=== PATIENT | male | born 1995 | race Caucasian/White ===

== ENCOUNTER → 2020-05-11 08:52 | Outpatient (BNVA) | payer OTHER, SELFPAY | PROVIDERS: Family Provider Nurse Practitioner; PCP Nurse Practitioner; Visit Provider Nurse Practitioner Family | DX: Z20.828 Contact with and (suspected) exposure to other viral communicable diseases (principal) | CPT/HCPCS: 87635 ==

== ENCOUNTER 2020-11-06 09:02 | Emergency (ER) | payer OTHER, SELFPAY ==
[2020-11-06 09:21] VITALS: BP 133/70; PULSE 77; RESP 18; TEMP 36.4; O2SAT 97; BMI 29.9
--- NOTE | 2020-11-06 09:32 | ED_ITS ---
HPI - Animal Bite General: Chief Complaint: Animal Bite Stated Complaint: possible spider bite Time Seen by Provider: 11/06/20 09:03 History of Present Illness: HPI narrative: Patient is a 25-year-old male who comes to the ED with lesion on right knee. Patient says last Friday he was mowing and then developed her small red lesion on right knee. The next morning he woke up with some redness to the skin ofg his right knee. There was a small puncture-like wound in the middle of the lesion. Over the past couple days it has become more red and swollen and painful. he has been applying some silver cream on it. Patient says he is up-to-date on his tetanus. Denies any other symptoms. Associated symptoms: Deny chills, fever(s) or headache(s) Review of Systems Const: Denies: fever(s), chills or fatigue Eyes: Denies: change in vision or eye discomfort ENMT: Denies: throat pain, odynophagia, nasal discharge or nasal congestion Card: Denies: chest pain, palpitations, edema, swelling of feet/ankles, dyspnea on exertion or orthopnea Resp: Denies: dyspnea, productive cough or non-productive cough GI: Denies: abdominal pain, nausea, vomiting, diarrhea, constipation or hematochezia : Denies: flank pain, difficulty urinating, dysuria or hematuria Musc: Denies: neck pain, back pain or extremity swelling Skin/Breast: Reports: new lesions (spider bite to right knee); Denies: rash Neuro: Denies: headache(s), numbness in extremities or weakness in extremities Physical Exam Const: COMMON NORMALS: no acute distress, patient oriented x3, healthy appearing and alert GENERAL APPEARANCE: cooperative and comfortable HENMT: COMMON NORMALS: normocephalic HEAD & SCALP: normocephalic MOUTH: Normal oral and palatal mucosa present THROAT: posterior oropharynx normal and uvula midline Neck/C-Spine: COMMON NORMALS: supple GENERAL: Yes normal visual inspection Resp: COMMON NORMALS: normal respiratory effort, No retractions, No use of accessory muscles and clear to auscultation bilaterally AUSCULTATION: clear to auscultation bilaterally Cardio: COMMON NORMALS: regular rate, regular rhythm, S1 normal heart sound present, S2 normal heart sound present, No gallops present (Cardio), No clicks present (Cardio), No murmurs present (Cardio) and Peripheral pulses 2+ throughout RATE: regular rate RHYTHM: regular rhythm HEART SOUNDS: S1 normal heart sound present and S2 normal heart sound present PERIPHERAL PULSES: Peripheral pulses 2+ throughout GI: COMMON NORMALS: Normal to inspection, nondistended, normoactive bowel sounds present, Soft to palpation, non-tender and no masses PALPATION: Yes Soft to palpation : COMMON NORMALS: Yes no CVA tenderness BLADDER/KIDNEY EXAM: Yes no CVA tenderness Back/Pelvis: COMMON NORMALS: no CVA tenderness Extremity: NARRATIVE EXTREMITY EXAM: Right knee skin?small puncture-like wound with some surrounding erythema, warmth, swelling and tenderness. Findings suggestive of possible spider bite with some developing cellulitis. GENERAL: Yes normal exam except as noted Neuro: COMMON NORMALS: patient oriented x3 and moves all extremities SENSORIUM/ORIENTATION: Yes alert Skin: NARRATIVE SKIN EXAM: Right knee?small puncture-like wound with some fu rrounding erythema, warmth, swelling and tenderness. Findings suggestive of possible spider bite with some developing cellulitis. GENERAL SKIN EXAM: dry skin Course Vital Signs: Vital signs: Vital Signs Temperature 97.6 F 11/06/20 09:21 Pulse Rate 77 11/06/20 09:21 Respiratory Rate 18 11/06/20 09:21 Blood Pressure 133/70 11/06/20 09:21 Pulse Oximetry 97 11/06/20 09:21 MDM - Animal Bite MDM Narrative: Medical decision making narrative: Patient is a 25-year-old male comes to the ED with a lesion on right knee. Exam findings are suggestive for possible spider bite with some developing cellulitis. Patient was discharged home with a prescription for Bactrim. He was told to follow-up with his PCP in 7 to 10 days for reevaluation. Return to ED precautions given. Patient understood agree with plan. Discharge Plan Discharge Patient Disposition: Home Clinical Impression: Cellulitis Qualifiers: Site of cellulitis: extremity Site of cellulitis of extremity: lower extremity Laterality: right Qualified Code(s): L03.115 - Cellulitis of right lower limb Brown recluse spider bite Qualifiers: Encounter type: initial encounter Injury intent: accidental or unintentional Qualified Code(s): T63.331A - Toxic effect of venom of brown recluse spider, accidental (unintentional), initial encounter Condition: Stable Prescriptions: New Bactrim DS 800-160 mg tablet 1 tab PO BID 7 Days Qty: 14 RF: 0 No Action venlafaxine [Effexor XR] 75 mg capsule,extended release 24hr 75 mg PO QAM RF: 0 Discharge Orders: Discharge ED (Routine); Ordered 11/06/20 Ordered By: Monroe Forrest Referrals: Danelle Simmons, TABLE COVER FOLDER [Primary Care Provider] - Discharge Diet: Regular Discharge Activity: Resume usual activity Patient Instructions: Cellulitis (ED), Brown Recluse Spider Bite (ED) Activity Restrictions/Additional Instructions: Follow-up with medical provider as directed in 7 to 10 days for reevaluation. Take medications as prescribed. You can apply triple antibiotic ointment or any other antibiotic cream/ointment to spider bite area to help prevent infection. Return to the ER or your medical provider if condition worsens. Please read and understand discharge instructions. Thank you for choosing [facility] for your healthcare needs today. Please realize this is an emergency room and that we are providing you with a medical screening exam and this may not be complete and all inclusive of all the testing and or work up that you may need to determine your ailment or severity of your illness. It is very important that you follow up as instructed or that you return to the Emergency Department should you have concerns or if your condition changes or worsens in any way. Coding Level of Care Code ED Sanitation Lead for Timo Taylor Exam Comprehensive
[2020-11-06 10:16] VITALS: BP 135/69; PULSE 80; RESP 16; O2SAT 97
== END 2020-11-06 10:19 | disposition home or self-care (01) ==
PROVIDERS: Emergency Provider Physician Assistant; PCP Nurse Practitioner
DX: L03.115 Cellulitis of right lower limb (principal); T63.331A Toxic effect of venom of brown recluse spider, accidental (unintentional), initial encounter
CPT/HCPCS: 99281

== ENCOUNTER 2022-10-22 16:22 | Emergency (ER) | payer MEDICAID, SELFPAY ==
[2022-10-22 16:25] VITALS: BP 141/87; PULSE 99; RESP 16; TEMP 36.6; O2SAT 99; BMI 27.8
[2022-10-22 16:51] VITALS: BP 143/81; PULSE 102; RESP 18; TEMP 36.7
--- NOTE | 2022-10-22 17:13 | W.ED.PSYCHS ---
HPI - Psych General: Chief Complaint: Psychiatric Symptoms Stated Complaint: MHE Time Seen by Provider: 10/22/22 16:58 Source: patient Mode of arrival: ambulatory Limitations: no limitations History of Present Illness: This patient made his way to the emergency department because he was told there might be a program here to help him with his underlying anxiety and depressive symptoms. He states that he has treated himself in the past because of episodes of feeling anxious with alcohol. He also does use marijuana which he prefers to use however alcohol is more readily available and he therefore it winds up being his most common treatment. He states over the weekend he drank to excess to help relieve his symptoms and his grandmother with whom he lives with wound up calling the police and he went to spending 24 hours in the holding cell. That opportunity prompted him to realize that he needed additional help and therefore he made his way to the emergency department. He states he previously was treated with Celexa or 1 of those similar medications approximately 2 years ago but it did not give him much improvement and he was disenchanted with the process and did not go back to the clinic. He specifically has no thoughts of harming himself or harming others. He is currently living with his grandmother and is unemployed. He does have family history of anxiety in his mother. MD complaint: feels depressed History of same: Yes Associated symptoms: Reports no associated symptoms and depression; Deny auditory hallucinations, visual hallucinations, homicidal ideation or suicidal ideation Treatments prior to arrival: none Review of Systems Const: Denies: fever(s) or chills Eyes: Denies: change in vision ENMT: Denies: odynophagia, nasal discharge or nasal congestion Resp: Denies: dyspnea, productive cough or non-productive cough GI: Denies: abdominal pain, nausea, vomiting or diarrhea Musc: Denies: back pain, extremity pain or extremity swelling Skin/Breast: Denies: rash Neuro: Denies: headache(s), numbness in extremities or weakness in extremities Psych: Reports: anxiety, depression and mood swings; Denies: hopelessness, loss of interest, visual hallucinations, auditory hallucinations, suicidal ideation or homicidal ideation Endo: Denies: polyuria or polydipsia PFS ED PFSH: Medical History Major depressive disorder, recurrent, moderate Symptoms include: racing thoughts, sweaty palms, increased pulse rate and feeling trapped. He avoids social situations which keeps him isolated. Mata also suffers from lack of motivation, feelings of hopelessness, crying spells and depressed mood. His depressed mood often triggers passive SI. Mata often feels irritable, and its difficult to enjoy pleasurable activities. Social History Smoking and tobacco status: current some day smoker cigarettes Years cigarettes smoked: 9 [ Other cigarette details: somedays none, somedays 3-4 ] Quit status (tobacco): considering quitting Second hand smoke exposure: No Physical Exam Narrative: EXAM NARRATIVE: He makes good eye contact. He answers questions in a fluent goal-directed voice. Appears to be comfortable Const: COMMON NORMALS: no acute distress, average body habitus, patient oriented x3 and alert GENERAL APPEARANCE: cooperative, comfortable and well kempt ORIENTATION/CONSCIOUSNESS: Yes awake HENMT: COMMON NORMALS: normocephalic and Normal nasal mucous membranes and turbinates present HEAD & SCALP: normocephalic NOSE: Normal nasal mucous membranes and turbinates present Eye: COMMON NORMALS: Equal, round and reactive pupils present, EOMs intact bilaterally and conjunctivae normal CONJUNCTIVA: Yes conjunctivae normal PUPIL: Yes Equal, round and reactive pupils present Neck/C-Spine: COMMON NORMALS: full ROM and no lymphadenopathy Chest: COMMONS NORMALS: normal inspection of the chest Resp: COMMON NORMALS: normal respiratory effort and No use of accessory muscles EFFORT & INSPECTION: Yes able to speak in complete sentences Cardio: COMMON NORMALS: Peripheral pulses 2+ throughout PERIPHERAL PULSES: Peripheral pulses 2+ throughout GI: COMMON NORMALS: Normal to inspection, nondistended, normoactive bowel sounds present Back/Pelvis: COMMON NORMALS: thoracic and lumbar spine normal to inspection and thoraco-lumbar ROM normal Extremity: COMMON NORMALS: normal to inspection and full ROM Neuro: COMMON NORMALS: patient oriented x3, moves all extremities and no focal motor deficits SENSORIUM/ORIENTATION: Yes alert CRANIAL NERVES: Yes CN normal except as noted GAIT: Yes Normal gait present Psych: COMMON NORMALS: mental status grossly normal, Normal thought process present, cooperative and speech normal APPEARANCE: Yes well kempt ATTITUDE: Yes calm ACTIVITY/MOTOR BEHAVIOR: Yes appropriate eye contact SPEECH: Yes normal speech THOUGHT PROCESS: Normal thought process present THOUGHT CONTENT: Yes Normal thought content present, No Suicidality present and No Homicidality present ATTENTION/CONCENTRATION: Yes attention grossly intact INSIGHT: Good insight present (Psych) JUDGEMENT: Fair judgement present (Psych) Skin: COMMON NORMALS: no rashes or lesions noted GENERAL SKIN EXAM: no rashes or lesions noted Course Vital Signs: Vital signs: Vital Signs Temperature 98.1 F 10/22/22 16:51 Pulse Rate 102 H 10/22/22 16:51 Respiratory Rate 18 10/22/22 16:51 Blood Pressure 143/81 10/22/22 16:51 Pulse Oximetry 99 10/22/22 16:25 Oxygen Delivery Me thod Room Air 10/22/22 16:25 MDM - Psych Medical Decision Making This patient made his way to the emergency department because he was concerned about his continued episodic use of alcohol and what appears to be an attempt at self treatment of his mood swings. A recent 24 hours and holding cell has given him a moment of clarity and therefore he is here to see if there is any treatment plans available to him. He has no thoughts of harming himself or others. He is previously been treated for mood disorder but with limited success any of abandon treatment at that time. During his evaluation here he was alert and cooperative answers questions appropriately and did not display any findings that suggested altered mental status, being under the influence, having limitations in decision-making capacity. Certainly no evidence at this time of suicidality or homicidality. We discussed treatment options primarily inpatient versus outpatient and he prefers the latter. I think that is appropriate given he seems to be at low risk for any suicidality at this time. We will give him the information and have him present to [facility] [place] at 7:30 in the morning for an intake and further evaluation and direction as indicated. He was appreciative of our interaction. Discharge Plan Discharge Patient Disposition: Home Clinical Impression: Mood disorder Condition: Stable Prescriptions: No Action cetirizine [Zyrtec] 10 mg tablet 10 mg PO DAILY Discharge Orders: Discharge ED (Routine); Ordered 10/22/22 Ordered By: Gamal Lawson Referrals: Danelle Simmons FNP [Primary Care Provider] - Patient Instructions: Opioid Safety, Pain Management Activity Restrictions/Additional Instructions: Present to the [facility] at 7:30 AM on Friday, 23 October and they will be able to assist you with an intake evaluation and further care and treatment as deemed necessary. If you need additional information you may call [phone]. If you have difficulty or unsuccessful with this course or have worsening symptoms or thoughts of harming yourself or others etc. return to this emergency department immediately. Coding Level of Care Code ED Valve Steamer for Timo Taylor
--- NOTE | 2022-10-23 08:38 | DCPLANNER ---
Addendum entered by Evita Monroy 10/24/22 12:43: Patient completed assessment on 10.23.22 at [facility]. Original Note: manager behavioral had message to schedule a follow up appointment for patient with [facility]. manager behavioral sent patients information to the scheduling staff at [facility] and customer supply coordinator Micaela Godoy. Patients information will be printed and reviewed. Clinic will call patient with appointment information.
== END 2022-10-22 17:45 | disposition home or self-care (01) ==
PROVIDERS: Emergency Provider Emergency Medicine; PCP Nurse Practitioner
DX: F39 Unspecified mood [affective] disorder (principal)
CPT/HCPCS: 99283

== ENCOUNTER → 2023-04-28 12:21 | Outpatient (BNVA) | payer MEDICAID, SELFPAY | PROVIDERS: PCP Nurse Practitioner; Visit Provider Nurse Practitioner Family | DX: Z76.89 Persons encountering health services in other specified circumstances (principal) | CPT/HCPCS: 80053; 80061; 84443; 85025 ==

== ENCOUNTER → 2024-04-09 12:46 | Outpatient (BNVA) | payer OTHER, SELFPAY | PROVIDERS: Visit Provider Psychiatry & Neurology Psychiatry | DX: F41.1 Generalized anxiety disorder (principal); F33.1 Major depressive disorder, recurrent, moderate | CPT/HCPCS: 80061; 83036 ==

== ENCOUNTER 2024-06-16 16:26 | Emergency (ER) | payer SELFPAY ==
[2024-04-30 11:48] VITALS: BP 135/83; BMI 25.9
[2024-06-16 16:27] VITALS: BP 116/58; PULSE 79; RESP 19; TEMP 36.3; O2SAT 96
--- NOTE | 2024-06-16 16:31 | ECG_ITS ---
[facility]24[facility]16 Pat Name: Ricardo Troy Department: Room: Gender: Male Makeup Sales Consultant: : 1995 Requested By: Allison Oh Order Number: [id number] MD: Jose Renteria M.D. Measurements Intervals Griffin Rate: 77 P: 55 MN: 139 QRS: 57 QRSD: 92 T: 53 QT: 375 QTc: 426 Interpretive Statements SINUS RHYTHM No previous ECG available for comparison Electronically Signed On 06-19-2024 23:11:55 MUFFLER TENDER by Jose Renteria M.D. [email or web address]
--- NOTE | 2024-06-16 16:31 | CTR_ITS ---
PROCEDURE INFORMATION: Exam: CT Head Without Contrast Exam date and time: 06/16/2024 4:52 PM Age: 28 years old Clinical indication: Altered mental status/memory loss; Confusion or disorientation; Additional info: AMS TECHNIQUE: Imaging protocol: Computed tomography of the head without contrast. Radiation optimization: All CT scans at this facility use at least one of these dose optimization techniques: automated exposure control; mA and/or kV adjustment per patient size (includes targeted exams where dose is matched to clinical indication); or iterative reconstruction. COMPARISON: No relevant prior studies available. RADIATION DOSE METRICS: Total DLP (mGy-cm): 1388.82 FINDINGS: Brain: No intracranial hemorrhage or hematoma is seen. No mass effect or shift of midline structures. No findings to indicate territorial or large vessel ischemic infarct. Townsend-white matter differentiation appears unremarkable. Cerebral ventricles: No ventriculomegaly. Paranasal sinuses: Visualized sinuses are unremarkable. No fluid levels. Mastoid air cells: Visualized mastoid air cells are well aerated. Bones: Bone windows of the skull show no acute abnormality. Soft tissues: Unremarkable. CT/CT head wo con* [id number] IMPRESSION: No acute intracranial abnormality.
--- NOTE | 2024-06-16 16:31 | XR_ITS ---
WS: [id number] Portable AP semiupright chest, 06/16/2024 Clinical Data: ams Comparison: Two-view chest, 12/03/2018 Findings: No nodules, masses or effusions are seen. The heart is normal. The pulmonary vascularity is not increased. No pneumonia or pneumothorax is seen. Monitor leads are on the chest wall. XR/XR chest 1V portable [id number] Impression: Negative chest.
[2024-06-16 16:56] LABS: Basophils # 0.1 10^3/uL (0.0-0.1); Basophils % 1.2 %; Eosinophils # 0.2 10^3/uL (0.0-0.8); Eosinophils % 4.5 %; Hematocrit 47.9 % (37-53); Lymphocytes % 38.7 %; Mean Corpuscular HGB Conc 33.4 g/dL (30-55); Mean Corpuscular Hemoglobin 29.6 pg (27-33); Mean Corpuscular Volume 88.5 fl (82-101); Mean Platelet Volume 10.4 fL (7.4-10.4); Monocytes # 0.3 10^3/uL (0.2-0.9); Monocytes % 6.3 %; Neutrophils # 2.51 10^3/uL (1.8-7.7); Neutrophils % 48.9 %; Nucleated Red Blood Cells % 0 %; Platelet Count 188 10^3/cmm (157-399); Red Blood Count 5.41 10^6/uL (3.85-5.65); Red Cell Distribution Width 12.7 % (12.1-15.1); White Blood Count 5.12 10^3/uL (3.29-11.43)
[2024-06-16 17:17] LABS: Alanine Aminotransferase 27 U/L (0-41); Albumin Level 4.6 g/dL (3.5-5.2); Alcohol Level 298 mg/dL (0-10); Alkaline Phosphatase 61 U/L (40-130); Aspartate Amino Transferase 23 U/L (0-40); Blood Urea Nitrogen 12 mg/dL (6-20); Calcium 8.8 mg/dL (8.5-10.5); Carbon Dioxide 25 mmol/L (22-29); Chloride 108 mmol/L (98-107); Globulin 2.5 g/dL (1.3-4.6); Glomerular Filtration Rate 113.5 mL/min (90-130); Glucose 86 mg/dL (65-115); Osmolality Calculated 299 mOsm/kg (285-295); Sodium 145 mmol/L (136-145); Total Bilirubin 0.3 mg/dL (0.15-1.2); Total Protein 7.1 g/dL (6.6-8.7)
[2024-06-16 17:18] LABS: Acetaminophen < 5.0 ug/mL (10-30); Salicylate < 0.3 mg/dL (3-10)
[2024-06-16 17:20] LABS: Anion Gap 16.1 (5-19); Potassium 4.1 mmol/L (3.5-5.1)
[2024-06-16 17:35] VITALS: BP 116/58; PULSE 70; RESP 20
--- NOTE | 2024-06-16 17:35 | ED_ITS ---
HPI - Altered Mental Status 2 General: Chief Complaint: Altered Mental Status Stated Complaint: AMS Time Seen by Provider: 06/16/24 16:28 Source: patient and EMS Mode of arrival: EMS Limitations: no limitations History of Present Illness: 28-year-old male who was at work they we re unable to find for an hour and then found him passed out in the bathroom EMS states that on the way here he had vomited and woke up he had appears intoxicated here he will wake up and answer some questions he is able to me his name and where he is he denies any pain anywhere Related Data Home Medications Medication Instructions Recorded Confirmed No Known Home Medications 04/15/23 04/09/24 Allergies Allergy/AdvReac Type Severity Reaction Status Date / Time No Known Allergies Allergy Verified 06/16/24 16:42 Review of Systems 2 Const: Denies: fever(s), chills, body aches or change in appetite ENMT: Denies: throat pain or dental pain Card: Denies: chest pain Resp: Denies: dyspnea GI: Reports: vomiting; Denies: abdominal pain, nausea or diarrhea Musc: Denies: neck pain or back pain Skin/Breast: Denies: rash Neuro: Denies: headache(s) PFSH ED 2 PFSH: Medical History Psychiatric care Major depressive disorder, recurrent, moderate Symptoms include: racing thoughts, sweaty palms, increased pulse rate and feeling trapped. He avoids social situations which keeps him isolated. Clt also suffers from lack of motivation, feelings of hopelessness, crying spells and depressed mood. His depressed mood often triggers passive SI. Clt often feels irritable, and its difficult to enjoy pleasurable activities. Family History (Updated 04/28/23 @ 12:05 by Timo Turner NP) Grandmother Diabetes Social History Smoking and tobacco/nicotine status: current some day tobacco/nicotine user cigarettes Years cigarettes smoked: 9 [ Other cigarette details: somedays none, somedays 3-4 ] Quit status (tobacco/nicotine): considering quitting Second hand smoke exposure: No Alcohol intake: never Substance/Drug Use: never Adopted: No Caregiver/support person: Yes Lives independently: No Household members: family Marital status: Single Physical Exam 2 Const: COMMON NORMALS: patient oriented x3 OTHER: Appears intoxicated HENMT: COMMON NORMALS: normocephalic and atraumatic HEAD & SCALP: n ormocephalic and atraumatic Eye: COMMON NORMALS: Equal, round and reactive pupils present and EOMs intact bilaterally PUPIL: Yes Equal, round and reactive pupils present Neck/C-Spine: COMMON NORMALS: full ROM and supple Chest: COMMONS NORMALS: normal inspection of the chest and normal palpation of entire chest wall Resp: COMMON NORMALS: normal respiratory effort, No retractions, No use of accessory muscles and clear to auscultation bilaterally AUSCULTATION: clear to auscultation bilaterally Cardio: COMMON NORMALS: regular rate, regular rhythm and No murmurs present (Cardio) RATE: regular rate RHYTHM: regular rhythm GI: COMMON NORMALS: Normal to inspection, nondistended, normoactive bowel sounds present, Soft to palpation, non-tender and no masses PALPATION: Yes Soft to palpation Extremity: COMMON NORMALS: normal to inspection and full ROM Neuro: COMMON NORMALS: patient oriented x3, moves all extremities and no focal motor deficits Psych: COMMON NORMALS: mental status grossly normal, Normal thought process present and cooperative THOUGHT PROCESS: Normal thought process present Skin: COMMON NORMALS: no rashes or lesions noted and no wounds GENERAL SKIN EXAM: no rashes or lesions noted Course 2 Vital Signs: Vital signs: Vital Signs Temperature 97.4 F L 06/16/24 16:27 Pulse Rate 72 06/16/24 18:30 Respiratory Rate 18 06/16/24 18:30 Blood Pressure 114/66 06/16/24 18:30 Pulse Oximetry 94 06/16/24 18:30 Oxygen Delivery Me thod Room Air 06/16/24 16:27 MDM - Altered Mental Status Medical Decision Making Patient presents here with altered mental status likely due to alcohol intoxication workup is otherwise negative patient stable for discharge with sister follow-up PCP return if worsening. Medical Records I reviewed the patient's medical records. Lab Data I reviewed the patient's lab results. 06/16/24 16:51 06/16/24 16:[address] 06/16/24 16:31 IMPRESSION: No acute intracranial abnormality. Laboratory Results WBC 5.12 10^3/uL (3.29-11.43) 06/16/24 16:51 RBC 5.41 10^6/uL (3.85-5.65) 06/16/24 16:51 Hgb 16.00 g/dL (11.27-16.99) 06/16/24 16:51 Hct 47.9 % (37-53) 06/16/24 16:51 MCV 88.5 fl (82-101) 06/16/24 16:51 MCH 29.6 pg (27-33) 06/16/24 16:51 MCHC 33.4 g/dL (30-55) 06/16/24 16:51 RDW 12.7 % (12.1-15.1) 06/16/24 16:51 Plt Count 188 10^3/cmm (157-399) 06/16/24 16:51 MPV 10.4 fL (7.4-10.4) 06/16/24 16:51 Neut % (Auto) 48.9 % 06/16/24 16:51 Lymph % (Auto) 38.7 % 06/16/24 16:51 [place] % (Auto) 6.3 % 06/16/24 16:51 Eos % (Auto) 4.5 % 06/16/24 16:51 Baso % (Auto) 1.2 % 06/16/24 16:51 Neut # (Auto) 2.51 10^3/uL (1.8-7.7) 06/16/24 16:51 Lymph # (Auto) 2.0 10^3/uL (0.8-4.8) 06/16/24 16:51 [place] # (Auto) 0.3 10^3/uL (0.2-0.9) 06/16/24 16:51 Eos # (Auto) 0.2 10^3/uL (0.0-0.8) 06/16/24 16:51 Baso # (Auto) 0.1 10^3/uL (0.0-0.1) 06/16/24 16:51 Nucleated RBC % (auto) 0 % 06/16/24 16:51 Nucleated RBCs # 0.0 /100WBC 06/16/24 16:51 Sodium 145 mmol/L (136-145) 06/16/24 16:51 Potassium 4.1 mmol/L (3.5-5.1) 06/16/24 16:51 Chloride 108 mmol/L (98-107) H 06/16/24 16:51 Carbon Dioxide 25 mmol/L (22-29) 06/16/24 16:51 Anion Gap 16.1 (5-19) 06/16/24 16:51 BUN 12 mg/dL (6-20) 06/16/24 16:51 Creatinine 0.8 mg/dL (0.7-1.2) 06/16/24 16:51 GFR Calculation 113.5 mL/min (90-130) 06/16/24 16:51 Glucose 86 mg/dL (65-115) 06/16/24 16:51 Calculated Osmolality 299 mOsm/kg (285-295) H 06/16/24 16:51 Calcium 8.8 mg/dL (8.5-10.5) 06/16/24 16:51 Total Bilirubin 0.3 mg/dL (0.15-1.2) 06/16/24 16:51 AST 23 U/L (0-40) 06/16/24 16:51 ALT 27 U/L (0-41) 06/16/24 16:51 Alkaline Phosphatase 61 U/L (40-130) 06/16/24 16:51 Total Protein 7.1 g/dL (6.6-8.7) 06/16/24 16:51 Albumin 4.6 g/dL (3.5-5.2) 06/16/24 16:51 Globulin 2.5 g/dL (1.3-4.6) 06/16/24 16:51 Salicylates < 0.3 mg/dL (3-10) L 06/16/24 16:51 Urine Opiates Screen Negative ng/mL (Negative) 06/16/24 17:34 Acetaminophen < 5.0 ug/mL (10-30) L 06/16/24 16:51 Ur Barbiturates Screen Negative ng/mL (Negative) 06/16/24 17:34 Ur Phencyclidine Scrn Negative ng/mL (Negative) 06/16/24 17:34 Ur Amphetamines Screen Negative ng/mL (Negative) 06/16/24 17:34 U Benzodiazepines Scrn Negative ng/mL (Negative) 06/16/24 17:34 Urine Cocaine Screen Negative ng/mL (Negative) 06/16/24 17:34 U Marijuana (THC) Screen Positive ng/mL (Negative) H 06/16/24 17:34 Ethyl Alcohol 298 mg/dL (0-10) H 06/16/24 16:51 All radiology interpretation(s) finalized by discharge Discharge Plan Discharge Patient Disposition: Home Clinical Impression: Alcoholic intoxication Condition: Stable Prescriptions: No Action No Known Home Medications Discharge Orders: Discharge ED (Routine); Ordered 06/16/24 Ordered By: Allison Oh Discharge Diet: Advance as tolerated Discharge Activity: Resume usual activity Patient Instructions: Alcohol Intoxication (ED) Coding Level of Care Code ED Guest Services Director for Timo Taylor
--- NOTE | 2024-06-16 17:37 | PC.NURSE ---
Patient covered in vomit. Cleaned up and placed in gown.
--- NOTE | 2024-06-16 17:37 | PC.NURSE ---
Patient vomiting in CT x 3. Pt then spit vomit chunk from mouth onto ct techs face. Dr Parisi has been notified.
[2024-06-16 17:53] LABS: Amphetamines Screen Urine Negative (Negative); Barbiturates Screen Urine Negative (Negative); Benzodiazepines Screen Urine Negative (Negative); Cocaine Screen Urine Negative (Negative); Opiate Screen Urine Negative (Negative); PCP Screen Urine Negative (Negative); THC Screen Urine Positive (Negative)
[2024-06-16] MEDS: ondansetron 2 mg/ML SDV 2 mL 4 MG IVP (17:57)
[2024-06-16 18:00] VITALS: BP 118/75; PULSE 68; RESP 17; O2SAT 98
[2024-06-16 18:30] VITALS: BP 114/66; PULSE 72; RESP 18; O2SAT 94
[2024-06-16 19:28] VITALS: BP 118/72; PULSE 84; O2SAT 99
== END 2024-06-16 19:46 | disposition home or self-care (01) ==
PROVIDERS: Emergency Provider Emergency Medicine
DX: F10.129 Alcohol abuse with intoxication, unspecified (principal); Y90.8 Blood alcohol level of 240 mg/100 ml or more; F17.210 Nicotine dependence, cigarettes, uncomplicated
CPT/HCPCS: 70450; 71045; 80053; 80306; 80307; 85025; 93005; 96374; 99285; J2405